=== PATIENT | female | born 1965 ===

== ENCOUNTER 2021-10-15 09:12 | Emergency (ER) | payer SELFPAY ==
[2021-10-15] MEDS ORDERED: HALOPERIDOL LACTATE 5 MG/1 ML INJ IM PRN (10:23)
[2021-10-15] MEDS ORDERED: LORazepam 2 MG/ML VIAL IM PRN (10:23)
--- NOTE | 2021-10-15 10:23 | Emergency Department Report ---
ED General Adult HPI - General Chief complaint: Psych Stated complaint: SI Time Seen by Provider: 10/15/21 10:12 Source: patient, RN notes reviewed, old records reviewed Mode of arrival: Ambulatory Limitations: No Limitations - History of Present Illness Initial comments: The patient is a 55-year-old female. She is not known to myself previously. She is visiting from [place]. She presents to the ER today with a complaint of painless suicidality. She states that she will likely cut herself. She states that she is bipolar and schizophrenic. The patient denies headache, neck pain, chest pain, abdominal pain, vomiting, diaphoresis, and urinary symptoms. She denies Covid symptoms. -: Gradual Consistency: constant Improves with: none Worsens with: none Associated Symptoms: denies other symptoms - Related Data Allergies Allergy/AdvReac Type Severity Reaction Status Date / Time aspirin Allergy Swelling Verified 10/15/21 02:08 codeine Allergy Swelling Verified 10/15/21 02:08 NSAIDS (Non-Steroidal Allergy Swelling Verified 10/15/21 02:08 Anti-Inflamma ED Review of Systems ROS: Stated complaint: SI Other details as noted in HPI Constitutional: denies: fever Eyes: denies: eye discharge ENT: denies: epistaxis Respiratory: denies: cough Cardiovascular: edema (Chronic lower extremity swelling). denies: chest pain Gastrointestinal: denies: abdominal pain, nausea, vomiting Genitourinary: denies: dysuria Musculoskeletal: myalgia Neurological: denies: weakness Psychiatric: depression, auditory hallucinations, visual hallucinations, suicidal thoughts ED Past Medical Hx - Past Medical History Previous Medical History?: Yes Hx Psychiatric Treatment: Yes (BIPOLAR, schizophrenia) - Surgical History Past Surgical History?: Yes Additional Surgical History: eye surgery. right knee sx ED Physical Exam - General Limitations: No Limitations General appearance: alert, in no apparent distress, obese - Head Head exam: Present: atraumatic, normocephalic - Eye Eye exam: Present: normal appearance, EOMI. Absent: nystagmus - ENT ENT exam: Present: normal exam, normal orophraynx, mucous membranes moist, normal external ear exam - Neck Neck exam: Present: normal inspection, full ROM. Absent: tenderness, meningismus - Respiratory Respiratory exam: Present: normal lung sounds bilaterally. Absent: respiratory distress, wheezes, rales, rhonchi, stridor, decreased breath sounds - Cardiovascular Cardiovascular Exam: Present: regular rate, normal rhythm, normal heart sounds. Absent: bradycardia, tachycardia, irregular rhythm, systolic murmur, diastolic murmur, rubs, gallop - GI/Abdominal GI/Abdominal exam: Present: soft. Absent: distended, tenderness, guarding, rebound, rigid, pulsatile mass - Extremities Exam Extremities exam: Present: normal inspection, full ROM, pedal edema (1+ edema in the bilateral lower extremities), other (2+ pulses noted in the bilateral upper and lower extremities. There is no palpable cord. negative Homans sign. Muscular compartments are soft. The pelvis is stable.). Absent: calf tenderness - Back Exam Back exam: Present: normal inspection, full ROM. Absent: tenderness, CVA tenderness (R), CVA tenderness (L), paraspinal tenderness, vertebral tenderness - Neurological Exam Neurological exam: Present: alert, oriented X3, normal gait, other (No facial droop. Tongue midline. Extraocular movements intact bilaterally. Facial sensation intact to light touch in V1, V2, V3 distribution bilaterally. 5 and a 5 strength in 4 extremities. Sensation intact to light touch in 4 ext remities.). Absent: motor sensory deficit - Psychiatric Psychiatric exam: Present: depressed, flat affect, suicidal ideation - Skin Skin exam: Present: warm, dry, intact, normal color. Absent: rash ED Course Vital Signs 10/15/21 09:14 Temperature 97.7 F Pulse Rate 107 H Respiratory 18 Rate Blood Pressure 121/64 [Right] O2 Sat by Pulse 100 Oximetry - Reevaluation(s) Reevaluation #1: 10/15/21 11:51 Differential diagnosis, including but not limited to: Encounter for behavioral health screening examination, encounter for medical screening examination, homelessness, secondary gain, malingering Assessment and plan: 55-year-old female, who was afebrile, with reassuring vital signs, with resolved tachycardia on my examination, who walks with a steady gait, and is clinically sober with a GCS of 15, who presents with unkempt and dirty clothing, visiting from out of state, concern for homelessness. However, the patient reports that she is suicidal with a plan. I suspect that the patient is presenting for the purposes of secondary gain, such as food, alf, clothing etc. Nevertheless, have placed the patient on a 1013. Screening laboratory studies unremarkable. Urinalysis is pending. Psychiatric consultation requested. The emergency room will follow along as the patient provides urinalysis. However, at this point time, this patient does not appear to have an immediate medical contraindication to psychiatric admission, evaluation, consultation and placement. Appreciate the psychiatric team's input and recommendations. ED Medical Decision Making - Lab Data Result diagrams: 10/15/21 10:26 10/15/21 10:26 Vital Signs 10/15/21 09:14 Temperature 97.7 F Pulse Rate 107 H Respiratory 18 Rate Blood Pressure 121/64 [Right] O2 Sat by Pulse 100 Oximetry Lab Results 10/15/21 10/15/21 10/15/21 Range/Units 10:26 10:26 10:26 WBC 10.4 (4.5-11.0) K/mm3 RBC 4.65 (3.65-5.03) M/mm3 Hgb 12.7 (10.1-14.3) gm/dl Hct 39.7 (30.3-42.9) % MCV 85 (79-97) fl MCH 27 L (28-32) pg MCHC 32 (30-34) % RDW 16.4 H (13.2-15.2) % Plt Count 309 (140-440) K/mm3 Lymph % (Auto) 16.8 (13.4-35.0) % [place] % (Auto) 5.7 (0.0-7.3) % Eos % (Auto) 0.4 (0.0-4.3) % Baso % (Auto) 1.4 (0.0-1.8) % Lymph # (Auto) 1.7 (1.2-5.4) K/mm3 [place] # (Auto) 0.6 (0.0-0.8) K/mm3 Eos # (Auto) 0.0 (0.0-0.4) K/mm3 Baso # (Auto) 0.1 (0.0-0.1) K/mm3 Seg Neutrophils % 75.7 H (40.0-70.0) % Seg Neutrophils # 7.9 H (1.8-7.7) K/mm3 Sodium 141 (137-145) mmol/L Potassium 3.6 (3.6-5.0) mmol/L Chloride 99.5 (98-107) mmol/L Carbon Dioxide 20 L (22-30) mmol/L Anion Gap 25 mmol/L BUN 8 (7-17) mg/dL Creatinine 0.7 (0.6-1.2) mg/dL Estimated GFR > 60 ml/min BUN/Creatinine Ratio 11 % Glucose 86 (65-100) mg/dL Calcium 9.0 (8.4-10.2) mg/dL Total Bilirubin 0.60 (0.1-1.2) mg/dL AST 23 (5-40) units/L ALT 19 (7-56) units/L Alkaline Phosphatase 92 (35-129) units/L Total Protein 7.3 (6.3-8.2) g/dL Albumin 4.1 (3.9-5) g/dL Albumin/Globulin Ratio 1.3 % Salicylates < 0.3 L (2.8-20.0) mg/dL Acetaminophen (10.0-30.0) ug/mL Plasma/Serum Alcohol (0-0.07) % 10/15/21 10/15/21 Range/Units 10:26 10:26 WBC (4.5-11.0) K/mm3 RBC (3.65-5.03) M/mm3 Hgb (10.1-14.3) gm/dl Hct (30.3-42.9) % MCV (79-97) fl MCH (28-32) pg MCHC (30-34) % RDW (13.2-15.2) % Plt Count (140-440) K/mm3 Lymph % (Auto) (13.4-35.0) % [place] % (Auto) (0.0-7.3) % Eos % (Auto) (0.0-4.3) % Baso % (Auto) (0.0-1.8) % Lymph # (Auto) (1.2-5.4) K/mm3 [place] # (Auto) (0.0-0.8) K/mm3 Eos # (Auto) (0.0-0.4) K/mm3 Baso # (Auto) (0.0-0.1) K/mm3 Seg Neutrophils % (40.0-70.0) % Seg Neutrophils # (1.8-7.7) K/mm3 Sodium (137-145) mmol/L Potassium (3.6-5.0) mmol/L Chloride (98-107) mmol/L Carbon Dioxide (22-30) mmol/L Anion Gap mmol/L BUN (7-17) mg/dL Creatinine (0.6-1.2) mg/dL Estimated GFR ml/min BUN/Creatinine Ratio % Glucose (65-100) mg/dL Calcium (8.4-10.2) mg/dL Total Bilirubin (0.1-1.2) mg/dL AST (5-40) units/L ALT (7-56) units/L Alkaline Phosphatase (35-129) units/L Total Protein (6.3-8.2) g/dL Albumin (3.9-5) g/dL Albumin/Globulin Ratio % Salicylates (2.8-20.0) mg/dL Acetaminophen 5.0 L (10.0-30.0) ug/mL Plasma/Serum Alcohol < 0.01 (0-0.07) % Critical care attestation.: If time is entered above; I have spent that time in minutes in the direct care of this critically ill patient, excluding procedure time. ED Disposition Clinical Impression: Medical clearance for psychiatric admission, Encounter for behavioral health screening Disposition: [address] [place] [address] Is pt being admited?: No Does the pt Need Aspirin: No Condition: Good Referrals: PRIMARY CARE, [Primary Care Provider] - 3-5 Days
[2021-10-15 10:43] LABS: Basophils # (Auto) 0.1 K/mm3 (0.0-0.1); Basophils % (Auto) 1.4 % (0.0-1.8); Eosinophils % (Auto) 0.4 % (0.0-4.3); Hematocrit 39.7 % (30.3-42.9); Hemoglobin 12.7 gm/dl (10.1-14.3); Lymphocytes # (Auto) 1.7 K/mm3 (1.2-5.4); Lymphocytes % (Auto) 16.8 % (13.4-35.0); Mean Corpuscular HGB Conc 32 % (30-34); Mean Corpuscular Volume 85 fl (79-97); Monocytes # (Auto) 0.6 K/mm3 (0.0-0.8); Monocytes % (Auto) 5.7 % (0.0-7.3); Platelet Count 309 K/mm3 (140-440); Red Blood Count 4.65 M/mm3 (3.65-5.03); Red Cell Distribution Width 16.4 % (13.2-15.2)
[2021-10-15 11:05] LABS: Alanine Aminotransferase 19 units/L (7-56); Albumin 4.1 g/dL (3.9-5); Blood Urea Nitrogen 8 mg/dL (7-17); Hemolysis Index 6
[2021-10-15 11:09] LABS: BUN/Creatinine Ratio 11
[2021-10-15] MEDS ORDERED: diphenhydrAMINE 25 MG CAP PO PRN (11:52)
[2021-10-15] MEDS ORDERED: ONDANSETRON 4 MG ODT TAB PO PRN (11:52)
[2021-10-15] MEDS ORDERED: ACETAMINOPHEN 325 MG TAB PO PRN (11:52)
--- NOTE | 2021-10-15 12:16 | Consultation ---
History of Present Illness - Reason for Consult Consult date: 10/15/21 Reason for consult: suicidal ideation - History of Present Psychiatric Illness ED Note:The patient is a 55-year-old female. She is not known to myself previously. She is visiting from [place]. She presents to the ER today with a complaint of painless suicidality. She states that she will likely cut herself. She states that she is bipolar and schizophrenic. The patient denies headache, neck pain, chest pain, abdominal pain, vomiting, diaphoresis, and urinary symptoms. She denies Covid symptoms. Mary Hernandes is a 55 year old female with history of schizophrenia, bipolar disorder who presents to the Ed with suicidal ideation. In my inter view with the patient, she reports that her mother with Covid 19 this morning. She endorses suicidal ideation with a plan to cut her throat and run into traffic. She also reports commanding auditory hallucinations " telling me to kill myself and I see little creatures stabbing me allover." PAST PSYCHIATRIC HISTORY Diagnoses: schizophrenia, bipolar Suicide attempts or Self-harm behavior: Yes Prior psychiatric hospitalizations: Yes Substance Abuse history: crack Previous psychiatric medications tried: Zoloft, Seroquel, Trazodone Outpatient treatment: Denied SOCIAL HISTORY Marital Status: Single Living Arrangements: Lives with boyfriend Employment Status: unemployed Access to guns/weapons: Denied Education: 8th grade History of Abuse: Denied Legal History: None reported REVIEW OF SYSTEMS Constitutional: Negative for weight loss ENT: Negative for stridor Respiratory: Negative for cough or hemoptysis All other systems reviewed and are negative MENTAL STATUS EXAMINATION General Appearance and Behavior: Age appropriate, dressed appropriately, calm and uncooperative Cooperation: cooperative Psychomotor Behavior: psychomotor normal Mood: "depressed" Affect and affective range: restricted Thought Process: goal oriented Thought Content: suicidal Speech: Normal volume, Regular rate and rhythm, Intellectual Functioning: Average Suicidal Ideation: suicidal Homicidal Ideation: denies Hallucinations: auditory/visual Delusions: None elicited Impulse Control: Unimpaired Insight and Judgment: limited insight and judgment, Memory: Normal Attention: divided Orientation: Alert, oriented Assessment and Plan (1) Hx Schizophrenia (2) Treatment plan 1013 Continue previous prescribed meds Start seroquel 50mg po QHS Start Zoloft 25mg po Daily Risks, benefits and alternatives of medications discussed with the patient, questions answered and consent obtained from patient. PSYCHOTHERAPY: Supportive psychotherapy provided MEDICAL: Per primary team DELIRIUM PRECAUTIONS: Please re-orient patient frequently, keep lights on during the day, and minimize benzodiazepines and opiates as these medications could worsen patient's confusion. TRANSONIC ENGINEER: Per medical team DISPOSITION: Recommend acute inpatient psychiatric hospitalization. Will follow. Thank you for the consult. Please contact with any questions and/or concerns. Case staffed with Dr. Milner Medications and Allergies Allergies Allergy/AdvReac Type Severity Reaction Status Date / Time aspirin Allergy Swelling Verified 10/15/21 02:08 codeine Allergy Swelling Verified 10/15/21 02:08 NSAIDS (Non-Steroidal Allergy Swelling Verified 10/15/21 02:08 Anti-Inflamma Active Meds: Active Medications Acetaminophen (Acetaminophen 325 Mg Tab) 650 mg PO Q6HR PRN PRN Reason: PAIN Diphenhydramine HCl (Diphenhydramine 25 Mg Cap) 50 mg PO QHS PRN PRN Reason: Insomnia Haloperidol Lactate (Haloperidol Lactate 5 Mg/1 Ml Inj) 5 mg IM Q6HR PRN PRN Reason: Agitation Lorazepam (Lorazepam 2 Mg/Ml Vial) 2 mg IM Q4HR PRN PRN Reason: Agitation Ondansetron HCl (Ondansetron 4 Mg Odt Tab) 4 mg PO Q6HR PRN PRN Reason: Nausea Mental Status Exam - Vital signs Last Vital Signs Temp 97.7 F 10/15/21 09:14 Pulse 107 H 10/15/21 09:14 Resp 18 10/15/21 09:14 BP 121/64 10/15/21 09:14 Pulse Ox 100 10/15/21 09:14 Results Result Diagrams: 10/15/21 10:26 10/15/21 10:26 Abnormal lab results 10/15/21 10/15/21 10/15/21 Range/Units 10:26 10:26 10:26 MCH 27 L (28-32) pg RDW 16.4 H (13.2-15.2) % Seg Neutrophils % 75.7 H (40.0-70.0) % Seg Neutrophils # 7.9 H (1.8-7.7) K/mm3 Carbon Dioxide 20 L (22-30) mmol/L Salicylates < 0.3 L (2.8-20.0) mg/dL Acetaminophen (10.0-30.0) ug/mL 10/15/21 Range/Units 10:26 MCH (28-32) pg RDW (13.2-15.2) % Seg Neutrophils % (40.0-70.0) % Seg Neutrophils # (1.8-7.7) K/mm3 Carbon Dioxide (22-30) mmol/L Salicylates (2.8-20.0) mg/dL Acetaminophen 5.0 L (10.0-30.0) ug/mL All other labs normal.
[2021-10-15] MEDS: QUEtiapine 25 MG TAB PO SCH (23:14)
[2021-10-16 01:20] LABS: Amphetamine Screen,Urine PRESUMPTIVE NEGATIVE; Benzodiazepines Screen,Urine PRESUMPTIVE NEGATIVE; Cannabinoid Screen,Urine PRESUMPTIVE NEGATIVE; Cocaine Screen,Urine PRESUMPTIVE NEGATIVE; Methadone Screen,Urine PRESUMPTIVE NEGATIVE; Opiate Screen,Urine PRESUMPTIVE NEGATIVE
[2021-10-16 01:23] LABS: Bacteria,Urine 1+ /HPF (Negative); Bilirubin,Urine NEG (Negative); Blood,Urine NEG (Negative); Color,Urine Yellow (Yellow); Mucus,Urine FEW /HPF; Protein,Urine <15 mg/dL mg/dL (Negative)
[2021-10-16] MEDS: SERTRALINE 25 MG TAB PO SCH (09:44)
--- NOTE | 2021-10-16 11:06 | Progress Note ---
Subjective - Reason for Consult Consult date: 10/16/21 Reason for consult: suicidal ideation - Chief Complaint Chief complaint: The patient is seen this morning, she continues to endorse suicidal ideation with a plan to cut her throat. She reports having commanding auditory hallucinations, voices " telling me to kill myself." REVIEW OF SYSTEMS Constitutional: Negative for weight loss ENT: Negative for stridor Respiratory: Negative for cough or hemoptysis All other systems reviewed and are negative MENTAL STATUS EXAMINATION General Appearance and Behavior: Age appropriate, dressed appropriately, calm and uncooperative Cooperation: cooperative Psychomotor Behavior: psychomotor normal Mood: "depressed" Affect and affective range: restricted Thought Process: goal oriented Thought Content: suicidal Speech: Normal volume, Regular rate and rhythm, Intellectual Functioning: Average Suicidal Ideation: suicidal Homicidal Ideation: denies Hallucinations: auditory/visual Delusions: None elicited Impulse Control: Unimpaired Insight and Judgment: limited insight and poor judgment, Memory: Normal Attention: divided Orientation: Alert, oriented Assessment and Plan (1) Hx Schizophrenia (2) Treatment plan 1013 Continue previous prescribed meds Start Seroquel 50mg po QHS Start Zoloft 25mg po Daily Risks, benefits and alternatives of medications discussed with the patient, questions answered and consent obtained from patient. PSYCHOTHERAPY: Supportive psychotherapy provided MEDICAL: Per primary team DELIRIUM PRECAUTIONS: Please re-orient patient frequently, keep lights on during the day, and minimize benzodiazepines and opiates as these medications could worsen patient's confusion. 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 Will follow. Thank you for the consult. Please contact with any questions and/or concerns. Case staffed with Dr. Milner Medications and Allergies Mental Status Exam - Vital signs Last Vital Signs Temp 98.7 F 10/16/21 08:44 Pulse 119 H 10/16/21 08:44 Resp 18 10/16/21 08:44 BP 109/58 10/16/21 08:44 Pulse Ox 95 10/16/21 09:46
--- NOTE | 2021-10-16 13:06 | Event Note ---
Date: 10/16/21 The patient was evaluated in the emergency department for symptoms described in the history of present illness. He/she was evaluated in the context of the global COVID-19 pandemic, which necessitated consideration that the patient might be at risk for infection with the virus that causes COVID-19. Institutional protocols and algorithms that pertain to the evaluation of patients at risk for COVID-19 are in a state of rapid change based on information released by regulatory bodies including the CDC and federal and state organizations. These policies and algorithms were followed during the patient's care in the emergency department. Please note that these policies, procedures and recommendations changed on a rapid basis. Laboratory studies, vital signs, nursing documentation, ER documentation, and psychiatric documentation are reviewed and appreciated. Nursing team reports no acute events this morning or concerns. Urinalysis demonstrates bacteriuria with pyuria. Macrobid ordered. The patient denied irritative or obstructive urinary symptoms to myself yesterday during her history and physical examination The patient is awake and ambulating and does not appear to be in any acute distress. The patient was deemed medically suitable for psychiatric disposition and placement during her initial ER evaluation. The patient continues to remain medically suitable for psychiatric placement and disposition. sHe is currently pending psychiatric placement. Vital Signs 10/15/21 10/15/21 10/15/21 09:14 18:52 20:27 Temperature 97.7 F 99.2 F Pulse Rate 107 H 111 H Respiratory 18 18 Rate Blood Pressure 121/64 99/62 [Right] O2 Sat by Pulse 100 99 94 Oximetry 10/16/21 10/16/21 10/16/21 03:01 03:52 08:44 Temperature 98.4 F 98.7 F Pulse Rate 104 H 119 H Respiratory 18 18 18 Rate Blood Pressure 96/41 109/58 [Right] O2 Sat by Pulse 96 96 95 Oximetry 10/16/21 09:46 Temperature Pulse Rate Respiratory Rate Blood Pressure [Right] O2 Sat by Pulse 95 Oximetry Lab Results 10/15/21 10/15/21 10/15/21 Range/Units 00:46 00:46 10:26 WBC 10.4 (4.5-11.0) K/mm3 RBC 4.65 (3.65-5.03) M/mm3 Hgb 12.7 (10.1-14.3) gm/dl Hct 39.7 (30.3-42.9) % MCV 85 (79-97) fl MCH 27 L (28-32) pg MCHC 32 (30-34) % RDW 16.4 H (13.2-15.2) % Plt Count 309 (140-440) K/mm3 Lymph % (Auto) 16.8 (13.4-35.0) % [place] % (Auto) 5.7 (0.0-7.3) % Eos % (Auto) 0.4 (0.0-4.3) % Baso % (Auto) 1.4 (0.0-1.8) % Lymph # (Auto) 1.7 (1.2-5.4) K/mm3 [place] # (Auto) 0.6 (0.0-0.8) K/mm3 Eos # (Auto) 0.0 (0.0-0.4) K/mm3 Baso # (Auto) 0.1 (0.0-0.1) K/mm3 Seg Neutrophils % 75.7 H (40.0-70.0) % Seg Neutrophils # 7.9 H (1.8-7.7) K/mm3 Sodium (137-145) mmol/L Potassium (3.6-5.0) mmol/L Chloride (98-107) mmol/L Carbon Dioxide (22-30) mmol/L Anion Gap mmol/L BUN (7-17) mg/dL Creatinine (0.6-1.2) mg/dL Estimated GFR ml/min BUN/Creatinine Ratio % Glucose (65-100) mg/dL Calcium (8.4-10.2) mg/dL Total Bilirubin (0.1-1.2) mg/dL AST (5-40) units/L ALT (7-56) units/L Alkaline Phosphatase (35-129) units/L Total Protein (6.3-8.2) g/dL Albumin (3.9-5) g/dL Albumin/Globulin Ratio % Urine Color Yellow (Yellow) Urine Turbidity Clear (Clear) Urine pH 6.0 (5.0-7.0) Ur Specific [place] 1.009 (1.003-1.030) Urine Protein <15 mg/dl (Negative) mg/dL Urine Glucose (UA) Neg (Negative) mg/dL Urine Ketones 20 (Negative) mg/dL Urine Blood Neg (Negative) Urine Nitrite Neg (Negative) Urine Bilirubin Neg (Negative) Urine Urobilinogen 2.0 (<2.0) mg/dL Ur Leukocyte Esterase Sm (Negative) Urine WBC (Auto) 21.0 H (0.0-6.0) /HPF Urine RBC (Auto) 2.0 (0.0-6.0) /HPF U Epithel Cells (Auto) 6.0 (0-13.0) /HPF Urine Bacteria (Auto) 1+ (Negative) /HPF Urine Mucus Few /HPF Salicylates (2.8-20.0) mg/dL Urine Opiates Screen Presumptive negative Urine Methadone Screen Presumptive negative Acetaminophen (10.0-30.0) ug/mL Ur Barbiturates Screen Presumptive negative Ur Phencyclidine Scrn Presumptive negative Ur Amphetamines Screen Presumptive negative U Benzodiazepines Scrn Presumptive negative Urine Cocaine Screen Presumptive negative U Marijuana (THC) Screen Presumptive negative Drugs of Abuse Note Disclamer Plasma/Serum Alcohol (0-0.07) % 10/15/21 10/15/21 10/15/21 Range/Units 10:26 10:26 10:26 WBC (4.5-11.0) K/mm3 RBC (3.65-5.03) M/mm3 Hgb (10.1-14.3) gm/dl Hct (30.3-42.9) % MCV (79-97) fl MCH (28-32) pg MCHC (30-34) % RDW (13.2-15.2) % Plt Count (140-440) K/mm3 Lymph % (Auto) (13.4-35.0) % [place] % (Auto) (0.0-7.3) % Eos % (Auto) (0.0-4.3) % Baso % (Auto) (0.0-1.8) % Lymph # (Auto) (1.2-5.4) K/mm3 [place] # (Auto) (0.0-0.8) K/mm3 Eos # (Auto) (0.0-0.4) K/mm3 Baso # (Auto) (0.0-0.1) K/mm3 Seg Neutrophils % (40.0-70.0) % Seg Neutrophils # (1.8-7.7) K/mm3 Sodium 141 (137-145) mmol/L Potassium 3.6 (3.6-5.0) mmol/L Chloride 99.5 (98-107) mmol/L Carbon Dioxide 20 L (22-30) mmol/L Anion Gap 25 mmol/L BUN 8 (7-17) mg/dL Creatinine 0.7 (0.6-1.2) mg/dL Estimated GFR > 60 ml/min BUN/Creatinine Ratio 11 % Glucose 86 (65-100) mg/dL Calcium 9.0 (8.4-10.2) mg/dL Total Bilirubin 0.60 (0.1-1.2) mg/dL AST 23 (5-40) units/L ALT 19 (7-56) units/L Alkaline Phosphatase 92 (35-129) units/L Total Protein 7.3 (6.3-8.2) g/dL Albumin 4.1 (3.9-5) g/dL Albumin/Globulin Ratio 1.3 % Urine Color (Yellow) Urine Turbidity (Clear) Urine pH (5.0-7.0) Ur Specific [place] (1.003-1.030) Urine Protein (Negative) mg/dL Urine Glucose (UA) (Negative) mg/dL Urine Ketones (Negative) mg/dL Urine Blood (Negative) Urine Nitrite (Negative) Urine Bilirubin (Negative) Urine Urobilinogen (<2.0) mg/dL Ur Leukocyte Esterase (Negative) Urine WBC (Auto) (0.0-6.0) /HPF Urine RBC (Auto) (0.0-6.0) /HPF U Epithel Cells (Auto) (0-13.0) /HPF Urine Bacteria (Auto) (Negative) /HPF Urine Mucus /HPF Salicylates < 0.3 L (2.8-20.0) mg/dL Urine Opiates Screen Urine Methadone Screen Acetaminophen 5.0 L (10.0-30.0) ug/mL Ur Barbiturates Screen Ur Phencyclidine Scrn Ur Amphetamines Screen U Benzodiazepines Scrn Urine Cocaine Screen U Marijuana (THC) Screen Drugs of Abuse Note Plasma/Serum Alcohol (0-0.07) % 10/15/21 Range/Units 10:26 WBC (4.5-11.0) K/mm3 RBC (3.65-5.03) M/mm3 Hgb (10.1-14.3) gm/dl Hct (30.3-42.9) % MCV (79-97) fl MCH (28-32) pg MCHC (30-34) % RDW (13.2-15.2) % Plt Count (140-440) K/mm3 Lymph % (Auto) (13.4-35.0) % [place] % (Auto) (0.0-7.3) % Eos % (Auto) (0.0-4.3) % Baso % (Auto) (0.0-1.8) % Lymph # (Auto) (1.2-5.4) K/mm3 [place] # (Auto) (0.0-0.8) K/mm3 Eos # (Auto) (0.0-0.4) K/mm3 Baso # (Auto) (0.0-0.1) K/mm3 Seg Neutrophils % (40.0-70.0) % Seg Neutrophils # (1.8-7.7) K/mm3 Sodium (137-145) mmol/L Potassium (3.6-5.0) mmol/L Chloride (98-107) mmol/L Carbon Dioxide (22-30) mmol/L Anion Gap mmol/L BUN (7-17) mg/dL Creatinine (0.6-1.2) mg/dL Estimated GFR ml/min BUN/Creatinine Ratio % Glucose (65-100) mg/dL Calcium (8.4-10.2) mg/dL Total Bilirubin (0.1-1.2) mg/dL AST (5-40) units/L ALT (7-56) units/L Alkaline Phosphatase (35-129) units/L Total Protein (6.3-8.2) g/dL Albumin (3.9-5) g/dL Albumin/Globulin Ratio % Urine Color (Yellow) Urine Turbidity (Clear) Urine pH (5.0-7.0) Ur Specific [place] (1.003-1.030) Urine Protein (Negative) mg/dL Urine Glucose (UA) (Negative) mg/dL Urine Ketones (Negative) mg/dL Urine Blood (Negative) Urine Nitrite (Negative) Urine Bilirubin (Negative) Urine Urobilinogen (<2.0) mg/dL Ur Leukocyte Esterase (Negative) Urine WBC (Auto) (0.0-6.0) /HPF Urine RBC (Auto) (0.0-6.0) /HPF U Epithel Cells (Auto) (0-13.0) /HPF Urine Bacteria (Auto) (Negative) /HPF Urine Mucus /HPF Salicylates (2.8-20.0) mg/dL Urine Opiates Screen Urine Methadone Screen Acetaminophen (10.0-30.0) ug/mL Ur Barbiturates Screen Ur Phencyclidine Scrn Ur Amphetamines Screen U Benzodiazepines Scrn Urine Cocaine Screen U Marijuana (THC) Screen Drugs of Abuse Note Plasma/Serum Alcohol < 0.01 (0-0.07) %
[2021-10-16] MEDS: NITROFURANTOIN MONOHYD/M-CRYST 100 MG CAP PO SCH ×2 (14:11→22:20)
[2021-10-16] MEDS: QUEtiapine 25 MG TAB PO SCH (22:20)
[2021-10-17] MEDS: SERTRALINE 25 MG TAB PO SCH (10:10)
[2021-10-17] MEDS: NITROFURANTOIN MONOHYD/M-CRYST 100 MG CAP PO SCH ×2 (10:10→22:05)
--- NOTE | 2021-10-17 11:32 | Progress Note ---
Subjective - Reason for Consult Consult date: 10/17/21 Reason for consult: suicidal ideation - Chief Complaint Chief complaint: The patient is seen this morning, she continues to endorse suicidal ideation with a plan to cut her throat. She reports having commanding auditory hallucinations, voices " telling me to kill myself." REVIEW OF SYSTEMS Constitutional: Negative for weight loss ENT: Negative for stridor Respiratory: Negative for cough or hemoptysis All other systems reviewed and are negative MENTAL STATUS EXAMINATION General Appearance and Behavior: Age appropriate, dressed appropriately, calm and uncooperative Cooperation: cooperative Psychomotor Behavior: psychomotor normal Mood: "depressed" Affect and affective range: restricted Thought Process: goal oriented Thought Content: suicidal Speech: Normal volume, Regular rate and rhythm, Intellectual Functioning: Average Suicidal Ideation: suicidal Homicidal Ideation: denies Hallucinations: auditory/visual Delusions: None elicited Impulse Control: Unimpaired Insight and Judgment: limited insight and poor judgment, Memory: Normal Attention: divided Orientation: Alert, oriented Assessment and Plan (1) Hx Schizophrenia (2) Treatment plan 1013 Continue previous prescribed meds Start Seroquel 50mg po QHS Start Zoloft 25mg po Daily Case management Risks, benefits and alternatives of medications discussed with the patient, questions answered and consent obtained from patient. PSYCHOTHERAPY: Supportive psychotherapy provided MEDICAL: Per primary team DELIRIUM PRECAUTIONS: Please re-orient patient frequently, keep lights on during the day, and minimize benzodiazepines and opiates as these medications could worsen patient's confusion. 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 Will follow. Thank you for the consult. Please contact with any questions and/or concerns. Case staffed with Dr. Milner Medications and Allergies Mental Status Exam - Vital signs Last Vital Signs Temp 98.6 F 10/17/21 05:39 Pulse 84 10/17/21 10:09 Resp 16 10/17/21 10:09 BP 91/54 10/17/21 10:09 Pulse Ox 96 10/17/21 10:09
--- NOTE | 2021-10-17 11:56 | Event Note ---
Date: 10/17/21 Patient seen by psychiatry this morning. Awaiting inpatient placement. There are no reported acute events overnight per nursing staff.
[2021-10-17] MEDS: QUEtiapine 25 MG TAB PO SCH (22:05)
--- NOTE | 2021-10-18 11:11 | Progress Note ---
Subjective - Reason for Consult Consult date: 10/18/21 Reason for consult: suicidal ideation - Chief Complaint Chief complaint: The patient is seen this morning, she continues to endorse suicidal ideation with a plan to cut her throat and also continues to have auditory hallucinations. REVIEW OF SYSTEMS Constitutional: Negative for weight loss ENT: Negative for stridor Respiratory: Negative for cough or hemoptysis All other systems reviewed and are negative MENTAL STATUS EXAMINATION General Appearance and Behavior: Age appropriate, dressed appropriately, calm and uncooperative Cooperation: cooperative Psychomotor Behavior: psychomotor normal Mood: "depressed" Affect and affective range: restricted Thought Process: goal oriented Thought Content: suicidal Speech: Normal volume, Regular rate and rhythm, Intellectual Functioning: Average Suicidal Ideation: suicidal Homicidal Ideation: denies Hallucinations: auditory/visual Delusions: None elicited Impulse Control: Unimpaired Insight and Judgment: limited insight and poor judgment, Memory: Normal Attention: divided Orientation: Alert, oriented Assessment and Plan (1) Hx Schizophrenia (2) Treatment plan 1013 Continue previous prescribed meds Start Seroquel 50mg po QHS Start Zoloft 25mg po Daily Case management Risks, benefits and alternatives of medications discussed with the patient, questions answered and consent obtained from patient. PSYCHOTHERAPY: Supportive psychotherapy provided MEDICAL: Per primary team DELIRIUM PRECAUTIONS: Please re-orient patient frequently, keep lights on during the day, and minimize benzodiazepines and opiates as these medications could worsen patient's confusion. 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 Will follow. Thank you for the consult. Please contact with any questions and/or concerns. Case staffed with Dr. Milner Medications and Allergies Mental Status Exam - Vital signs Last Vital Signs Temp 98.3 F 10/17/21 19:50 Pulse 80 10/17/21 19:50 Resp 18 10/18/21 04:59 BP 99/54 10/17/21 19:50 Pulse Ox 98 10/18/21 04:59
--- NOTE | 2021-10-18 11:59 | Event Note ---
Date: 10/18/21 Patient is continue to endorse suicidal ideations. Resting comfortably at this time. Patient remained in 1013. No further issues at this moment. Psychiatry Progress Note Patient Name: GRAEME FREEDMAN Date of : 1965 Patient Status: Emergency Emergency Provider: WILNERDOMINICK IBRAHIM Date: 10/18/21 11:10 Initialization Date: 10/18/21 11:10 Subjective - Reason for Consult Consult date: 10/18/21 Reason for consult: suicidal ideation - Chief Complaint Chief complaint: The patient is seen this morning, she continues to endorse suicidal ideation with a plan to cut her throat and also continues to have auditory hallucinations. REVIEW OF SYSTEMS Constitutional: Negative for weight loss ENT: Negative for stridor Respiratory: Negative for cough or hemoptysis All other systems reviewed and are negative MENTAL STATUS EXAMINATION General Appearance and Behavior: Age appropriate, dressed appropriately, calm and uncooperative Cooperation: cooperative Psychomotor Behavior: psychomotor normal Mood: "depressed" Affect and affective range: restricted Thought Process: goal oriented Thought Content: suicidal Speech: Normal volume, Regular rate and rhythm, Intellectual Functioning: Average Suicidal Ideation: suicidal Homicidal Ideation: denies Hallucinations: auditory/visual Delusions: None elicited Impulse Control: Unimpaired Insight and Judgment: limited insight and poor judgment, Memory: Normal Attention: divided Orientation: Alert, oriented Assessment and Plan (1) Hx Schizophrenia (2) Treatment plan 1013 Continue previous prescribed meds Start Seroquel 50mg po QHS Start Zoloft 25mg po Daily Case management Risks, benefits and alternatives of medications discussed with the patient, questions answered and consent obtained from patient. PSYCHOTHERAPY: Supportive psychotherapy provided MEDICAL: Per primary team DELIRIUM PRECAUTIONS: Please re-orient patient frequently, keep lights on during the day, and minimize benzodiazepines and opiates as these medications could worsen patient's confusion. SPECIAL TESTER: Per medical team DISPOSITION: Recommend acute inpatient psychiatric hospitalization. Will follow. Thank you for the consult. Please contact with any questions and/or concerns. Case staffed with Dr. Milner
[2021-10-18 14:57] LABS: Hematocrit 40.6 % (30.3-42.9); Hemoglobin 12.5 gm/dl (10.1-14.3); Mean Corpuscular HGB Conc 31 % (30-34); Mean Corpuscular Volume 87 fl (79-97); Platelet Count 302 K/mm3 (140-440); Red Blood Count 4.68 M/mm3 (3.65-5.03); Red Cell Distribution Width 16.6 % (13.2-15.2)
[2021-10-18] MEDS: NITROFURANTOIN MONOHYD/M-CRYST 100 MG CAP PO SCH (22:24)
[2021-10-18] MEDS: QUEtiapine 25 MG TAB PO SCH ×2 (22:25)
[2021-10-19] MEDS: SERTRALINE 25 MG TAB PO SCH (10:30)
[2021-10-19] MEDS: QUEtiapine 25 MG TAB PO SCH ×3 (10:30→22:15)
[2021-10-19] MEDS: NITROFURANTOIN MONOHYD/M-CRYST 100 MG CAP PO SCH ×2 (10:30→22:15)
--- NOTE | 2021-10-19 11:02 | Progress Note ---
Subjective - Reason for Consult Consult date: 10/19/21 Reason for consult: suicidal ideation - Chief Complaint Chief complaint: The patient is seen this morning, she continues to endorse suicidal ideation , her plan is not clear today. She continues to have commanding auditory hallucinations. REVIEW OF SYSTEMS Constitutional: Negative for weight loss ENT: Negative for stridor Respiratory: Negative for cough or hemoptysis All other systems reviewed and are negative MENTAL STATUS EXAMINATION General Appearance and Behavior: Age appropriate, dressed appropriately, calm and uncooperative Cooperation: cooperative Psychomotor Behavior: psychomotor normal Mood: "depressed" Affect and affective range: restricted Thought Process: goal oriented Thought Content: suicidal Speech: Normal volume, Regular rate and rhythm, Intellectual Functioning: Average Suicidal Ideation: suicidal Homicidal Ideation: denies Hallucinations: auditory/visual Delusions: None elicited Impulse Control: Unimpaired Insight and Judgment: limited insight and poor judgment, Memory: Normal Attention: divided Orientation: Alert, oriented Assessment and Plan (1) Hx Schizophrenia (2) Treatment plan 1013 Continue previous prescribed meds Start Seroquel 50mg po QHS Start Zoloft 25mg po Daily Case management Risks, benefits and alternatives of medications discussed with the patient, questions answered and consent obtained from patient. PSYCHOTHERAPY: Supportive psychotherapy provided MEDICAL: Per primary team DELIRIUM PRECAUTIONS: Please re-orient patient frequently, keep lights on during the day, and minimize benzodiazepines and opiates as these medications could worsen patient's confusion. 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 Will follow. Thank you for the consult. Please contact with any questions and/or concerns. Case staffed with Dr. Milner Medications and Allergies Mental Status Exam - Vital signs Last Vital Signs Temp 98.1 F 10/18/21 21:07 Pulse 80 10/18/21 21:07 Resp 18 10/18/21 21:07 BP 111/54 10/18/21 21:07 Pulse Ox 96 10/18/21 21:07
--- NOTE | 2021-10-19 11:27 | Emergency Department Report ---
Blank Doc - Documentation Documentation: This patient presented on 10/15 with suicidal ideations and command hallucinat ions and for this reason was placed on a 1013 and ED hold. She was previously medically cleared by my ER colleague. The patient was seen again today by the psychiatric team who feel that they will continue pushing for inpatient stabilization. They have started the patient on Abilify and Zoloft. No events overnight. Vital signs reassuring. The patient had a repeat CBC yesterday that appears unremarkable. We will continue to monitor the patient during her ED course.
[2021-10-20 10:17] VITALS: BP 98/62
[2021-10-20] MEDS: NITROFURANTOIN MONOHYD/M-CRYST 100 MG CAP PO SCH (10:59)
[2021-10-20] MEDS: SERTRALINE 25 MG TAB PO SCH (10:59)
[2021-10-20] MEDS: QUEtiapine 25 MG TAB PO SCH (10:59)
--- NOTE | 2021-10-20 12:02 | Event Note ---
Date: 10/20/21 56-year-old female here for suicidal ideations and psychosis. She was medically cleared for psychiatric evaluation and placement. Vital signs reviewed and are stable. She has been accepted for transfer to an inpatient psychiatric facility.
== END 2021-10-20 12:32 ==
LOC: ED 09:12
DX: R45.851 Suicidal ideations (principal); F31.9 Bipolar disorder, unspecified; Z13.30 Encounter for screening examination for mental health and behavioral disorders, unspecified; Z20.822 Contact with and (suspected) exposure to COVID-19
CPT/HCPCS: 36415; 80053; 80307; 81001; 85025; 85027; 87086; 99285; U0003; 80320; G0480